=== PATIENT | female | born 1935 | race Caucasian/White ===

== ENCOUNTER 2020-11-16 16:12 | Inpatient (IN) ==
[2020-11-16] MEDS ORDERED: Ondansetron 4 MG/2 ML VIAL IVP ONE (16:46)
[2020-11-16] MEDS ORDERED: GI Cocktail 40 ML EACH PO ONE (16:47)
[2020-11-16] MEDS ORDERED: Isovue-370 500 ML BOTTLE IVP ONE (16:47)
[2020-11-16 17:19] LABS: Basophils % 0.2 %; Eosinophils % 0.3 %; Hematocrit 32.2 % (35.3-44.9); Hemoglobin 11.1 g/dL (11.5-15.4); Immature Granulocytes % 0.4 % (0-4); Lymphocytes # 1.2 K/mcL (0.6-4.6); Lymphocytes % 11.6 %; Mean Corpuscular HGB Conc 34.5 g/dL (31.6-35.5); Mean Corpuscular Hemoglobin 32.7 pg (28.0-33.3); Monocytes # 1.1 K/mcL (0.0-1.3); Monocytes % 10.1 %; Neutrophils # 8.1 K/mcL (1.6-8.9); Platelet Count 199 K/mcL (140-400); Red Blood Count 3.39 M/mcL (3.82-4.97); Red Cell Distribution Width 12.3 % (11.5-14.5); Segmented Neutrophils % 77.4 %; White Blood Count 10.5 K/mcL (4.3-11.1)
[2020-11-16 17:50] LABS: Alanine Aminotransferase 10 Units/L (7-52); Albumin 4.1 g/dL (3.5-5.7); Albumin/Globulin Ratio 1.5 (1.1-2.2); Alkaline Phosphatase 123 Units/L (34-104); Aspartate Amino Transferase 19 Units/L (13-39); BUN/Creatinine Ratio 15 (6-26); Bilirubin,Total 0.5 mg/dL (0.3-1.0); Blood Urea Nitrogen 12 mg/dL (8-23); Calcium 9.1 mg/dL (8.6-10.3); Carbon Dioxide 21 mEq/L (23-29); Chloride 85 mEq/L (98-107); Globulin 2.7 g/dL (2.4-3.5); Glucose 92 mg/dL (70-105); Osmolality,Calculated 243 (280-300); Sodium 117 mEq/L (136-145); Total Protein 6.8 g/dL (6.4-8.9); Troponin I < 0.03 ng/mL (< 0.04); eGFR For African Americans > 60 (> 60); eGFR For Non-African Americans > 60 (> 60)
[2020-11-16] MEDS ORDERED: 0.9 % Sodium Chloride 1,000 ML IVC ONE (18:45)
[2020-11-16] MEDS ORDERED: Metoclopramide 10 MG/2 ML VIAL IVP ONE (20:16)
[2020-11-16 21:07] LABS: BUN/Creatinine Ratio 14 (6-26); Blood Urea Nitrogen 12 mg/dL (8-23); Carbon Dioxide 19 mEq/L (23-29); Chloride 88 mEq/L (98-107); Glucose 105 mg/dL (70-105); Osmolality,Calculated 246 (280-300); Sodium 118 mEq/L (136-145); eGFR For African Americans > 60 (> 60); eGFR For Non-African Americans > 60 (> 60)
[2020-11-16] MEDS ORDERED: Naloxone 0.4 MG/ML INJ IVP PRN (21:41)
[2020-11-16] MEDS ORDERED: Ondansetron 4 MG/2 ML VIAL IVP PRN (21:41)
[2020-11-16] MEDS ORDERED: diazePAM 2 MG TABLET PO PRN (22:00)
[2020-11-16 22:39] LABS: BUN/Creatinine Ratio 14 (6-26); Blood Urea Nitrogen 11 mg/dL (8-23); Calcium 8.9 mg/dL (8.6-10.3); Carbon Dioxide 21 mEq/L (23-29); Chloride 88 mEq/L (98-107); Glucose 111 mg/dL (70-105); Osmolality,Calculated 248 (280-300); Potassium 4.2 mEq/L (3.5-5.1); Sodium 119 mEq/L (136-145); eGFR For African Americans > 60 (> 60); eGFR For Non-African Americans > 60 (> 60)
[2020-11-16] MEDS: Acetaminophen 325 MG TABLET PO PRN (22:45)
[2020-11-16] MEDS ORDERED: 0.9 % Sodium Chloride 1,000 ML IVC SCH (22:45)
[2020-11-16] MEDS: Celecoxib 200 MG CAPSULE PO SCH (22:46)
[2020-11-16] MEDS: QUEtiapine Fumarate 25 MG TABLET PO SCH (22:46)
[2020-11-16] MEDS: PARoxetine 10 MG TABLET PO SCH (22:46)
[2020-11-16 23:13] LABS: Bilirubin,Urine Negative (Negative); Blood,Urine Negative (Negative); Clarity,Urine Clear (Clear); Color,Urine Colorless (Yellow); Glucose,Urine (UA) Normal (Normal); Ketones,Urine Negative (Negative); Leukocyte Esterase,Urine Large (Negative); Nitrite,Urine Positive (Negative); Protein,Urine Negative (Neg-Trace); RBC,Urine 0-3 per hpf (0-3); Specific Gravity,Urine 1.017 (1.010-1.025); Urobilinogen,Urine Normal (Normal); WBC,Urine 50-100 per hpf (0-3)
[2020-11-17] MEDS: cefTRIAXone 1,000 MG in Water for inj. (sterile) 10 ML IVP SCH (01:45)
[2020-11-17 02:29] LABS: Basophils % 0.1 %; Eosinophils # 0.1 K/mcL (0.0-0.6); Eosinophils % 0.7 %; Hematocrit 29.4 % (35.3-44.9); Hemoglobin 10.2 g/dL (11.5-15.4); Immature Granulocytes % 0.5 % (0-4); Lymphocytes # 1.1 K/mcL (0.6-4.6); Lymphocytes % 12.2 %; Mean Corpuscular HGB Conc 34.7 g/dL (31.6-35.5); Mean Corpuscular Hemoglobin 33.6 pg (28.0-33.3); Mean Corpuscular Volume 96.7 fL (83.0-100.0); Monocytes # 0.8 K/mcL (0.0-1.3); Monocytes % 8.5 %; Neutrophils # 7.1 K/mcL (1.6-8.9); Platelet Count 173 K/mcL (140-400); Red Blood Count 3.04 M/mcL (3.82-4.97); Red Cell Distribution Width 12.7 % (11.5-14.5); White Blood Count 9.2 K/mcL (4.3-11.1)
[2020-11-17 02:44] LABS: BUN/Creatinine Ratio 14 (6-26); Blood Urea Nitrogen 11 mg/dL (8-23); Calcium 8.2 mg/dL (8.6-10.3); Carbon Dioxide 20 mEq/L (23-29); Chloride 93 mEq/L (98-107); Glucose 119 mg/dL (70-105); Osmolality,Calculated 249 (280-300); Potassium 4.3 mEq/L (3.5-5.1); Sodium 119 mEq/L (136-145); eGFR For African Americans > 60 (> 60); eGFR For Non-African Americans > 60 (> 60)
[2020-11-17 05:51] LABS: BUN/Creatinine Ratio 12 (6-26); Blood Urea Nitrogen 10 mg/dL (8-23); Calcium 8.6 mg/dL (8.6-10.3); Carbon Dioxide 23 mEq/L (23-29); Chloride 96 mEq/L (98-107); Glucose 103 mg/dL (70-105); Magnesium 2.3 mg/dL (1.6-2.6); Osmolality,Calculated 259 (280-300); Potassium 4.4 mEq/L (3.5-5.1); Sodium 125 mEq/L (136-145); eGFR For African Americans > 60 (> 60); eGFR For Non-African Americans > 60 (> 60)
[2020-11-17] MEDS: Celecoxib 200 MG CAPSULE PO SCH (08:38)
[2020-11-17] MEDS: PARoxetine 10 MG TABLET PO SCH (08:38)
[2020-11-17] MEDS ORDERED: D5% in Water 1,000 ML IVC SCH (12:45)
[2020-11-17] MEDS: D5% in Water 1,000 ML IVC SCH (17:33)
[2020-11-17] MEDS: QUEtiapine Fumarate 25 MG TABLET PO SCH (22:11)
[2020-11-18 01:32] LABS: Basophils % 0.6 %; Eosinophils # 0.2 K/mcL (0.0-0.6); Eosinophils % 3.3 %; Hematocrit 29.7 % (35.3-44.9); Hemoglobin 10.2 g/dL (11.5-15.4); Immature Granulocytes % 0.3 % (0-4); Lymphocytes # 1.1 K/mcL (0.6-4.6); Lymphocytes % 17.4 %; Mean Corpuscular HGB Conc 34.3 g/dL (31.6-35.5); Mean Corpuscular Hemoglobin 33.3 pg (28.0-33.3); Mean Corpuscular Volume 97.1 fL (83.0-100.0); Mean Platelet Volume 8.8 fL (9.4-12.4); Monocytes # 0.8 K/mcL (0.0-1.3); Monocytes % 11.4 %; Neutrophils # 4.4 K/mcL (1.6-8.9); Platelet Count 191 K/mcL (140-400); Red Blood Count 3.06 M/mcL (3.82-4.97); Red Cell Distribution Width 13.2 % (11.5-14.5); White Blood Count 6.6 K/mcL (4.3-11.1)
[2020-11-18] MEDS: cefTRIAXone 1,000 MG in Water for inj. (sterile) 10 ML IVP SCH (01:39)
[2020-11-18] MEDS: D5% in Water 1,000 ML IVC SCH (01:46)
[2020-11-18 01:49] LABS: BUN/Creatinine Ratio 17 (6-26); Blood Urea Nitrogen 11 mg/dL (8-23); Calcium 8.7 mg/dL (8.6-10.3); Carbon Dioxide 22 mEq/L (23-29); Chloride 97 mEq/L (98-107); Glucose 110 mg/dL (70-105); Osmolality,Calculated 262 (280-300); Potassium 4.2 mEq/L (3.5-5.1); Sodium 126 mEq/L (136-145); eGFR For African Americans > 60 (> 60); eGFR For Non-African Americans > 60 (> 60)
[2020-11-18] MEDS: Multivit/Ca/Min/Fe/FA 1 TAB TABLET PO SCH (09:57)
[2020-11-18] MEDS: Cholecalciferol (D-3) 1,000 UNIT (25MCG) TABLET PO SCH (09:57)
[2020-11-18] MEDS: PARoxetine 10 MG TABLET PO SCH (09:57)
[2020-11-18] MEDS: Folic Acid 1 MG TABLET PO SCH (09:57)
[2020-11-18] MEDS: 0.9 % Sodium Chloride 1,000 ML IVC SCH ×2 (11:42→21:30)
[2020-11-18 12:37] LABS: BUN/Creatinine Ratio 11 (6-26); Blood Urea Nitrogen 8 mg/dL (8-23); Calcium 9.3 mg/dL (8.6-10.3); Carbon Dioxide 24 mEq/L (23-29); Chloride 93 mEq/L (98-107); Glucose 130 mg/dL (70-105); Osmolality,Calculated 260 (280-300); Potassium 4.2 mEq/L (3.5-5.1); Sodium 125 mEq/L (136-145); eGFR For African Americans > 60 (> 60); eGFR For Non-African Americans > 60 (> 60)
[2020-11-18] MEDS: QUEtiapine Fumarate 25 MG TABLET PO SCH (21:30)
[2020-11-18 22:33] LABS: BUN/Creatinine Ratio 13 (6-26); Blood Urea Nitrogen 8 mg/dL (8-23); Calcium 8.7 mg/dL (8.6-10.3); Carbon Dioxide 25 mEq/L (23-29); Chloride 96 mEq/L (98-107); Glucose 100 mg/dL (70-105); Osmolality,Calculated 262 (280-300); Sodium 127 mEq/L (136-145); eGFR For African Americans > 60 (> 60); eGFR For Non-African Americans > 60 (> 60)
[2020-11-19] MEDS: cefTRIAXone 1,000 MG in Water for inj. (sterile) 10 ML IVP SCH (00:40)
[2020-11-19] MEDS: Acetaminophen 325 MG TABLET PO PRN (03:45)
[2020-11-19 07:31] LABS: BUN/Creatinine Ratio 11 (6-26); Blood Urea Nitrogen 7 mg/dL (8-23); Calcium 8.8 mg/dL (8.6-10.3); Carbon Dioxide 22 mEq/L (23-29); Chloride 102 mEq/L (98-107); Glucose 101 mg/dL (70-105); Osmolality,Calculated 268 (280-300); Potassium 4.3 mEq/L (3.5-5.1); Sodium 130 mEq/L (136-145); eGFR For African Americans > 60 (> 60); eGFR For Non-African Americans > 60 (> 60)
[2020-11-19] MEDS: Multivit/Ca/Min/Fe/FA 1 TAB TABLET PO SCH (08:27)
[2020-11-19] MEDS: Folic Acid 1 MG TABLET PO SCH (08:27)
[2020-11-19] MEDS: PARoxetine 10 MG TABLET PO SCH (08:28)
[2020-11-19] MEDS: Cholecalciferol (D-3) 1,000 UNIT (25MCG) TABLET PO SCH (08:28)
[2020-11-19 11:48] VITALS: BP 168/78
== END 2020-11-19 12:45 | disposition home or self-care (01) | DRG 641 ==
LOC: EMEROOARM 16:12 → 2NENU 16:12 → SUATTDRO 20:24 → 2NENU 21:33 → SUATTDRO 11-17 11:49
PROVIDERS: ADMIT Internal Medicine; ATTEND Internal Medicine

== ENCOUNTER 2021-07-27 07:43 | Observation (INO) ==
[2021-07-27] MEDS ORDERED: 0.9 % Sodium Chloride 1,000 ML IVC ONE (07:55)
[2021-07-27 08:52] LABS: Basophils % 0.2 %; Eosinophils # 0.1 K/mcL (0.0-0.6); Eosinophils % 1.2 %; Hematocrit 32.9 % (35.3-44.9); Hemoglobin 11.4 g/dL (11.5-15.4); Immature Granulocytes % 0.6 % (0-4); Lymphocytes # 0.9 K/mcL (0.6-4.6); Lymphocytes % 10.6 %; Mean Corpuscular HGB Conc 34.7 g/dL (31.6-35.5); Mean Corpuscular Hemoglobin 33.4 pg (28.0-33.3); Mean Corpuscular Volume 96.5 fL (83.0-100.0); Mean Platelet Volume 9.4 fL (9.4-12.4); Monocytes % 11.5 %; Neutrophils # 6.5 K/mcL (1.6-8.9); Platelet Count 252 K/mcL (140-400); Red Blood Count 3.41 M/mcL (3.82-4.97); Segmented Neutrophils % 75.9 %; White Blood Count 8.6 K/mcL (4.3-11.1)
[2021-07-27 08:59] LABS: BUN/Creatinine Ratio 12 (6-26); Blood Urea Nitrogen 9 mg/dL (8-23); Calcium 9.4 mg/dL (8.6-10.3); Carbon Dioxide 21 mEq/L (23-29); Chloride 86 mEq/L (98-107); Glucose 112 mg/dL (70-105); Osmolality,Calculated 245 (280-300); Potassium 4.2 mEq/L (3.5-5.1); Sodium 118 mEq/L (136-145); Troponin I < 0.03 ng/mL (< 0.04); eGFR For African Americans > 60 (> 60); eGFR For Non-African Americans > 60 (> 60)
[2021-07-27] MEDS ORDERED: Ondansetron ODT 4 MG TAB.RAPDIS SL PRN (09:48)
[2021-07-27] MEDS ORDERED: Naloxone 0.4 MG/ML INJ IVP PRN (09:48)
[2021-07-27] MEDS ORDERED: Melatonin 3 MG TABLET PO PRN (09:48)
[2021-07-27] MEDS ORDERED: PARoxetine 10 MG TABLET PO SCH (10:00)
[2021-07-27 12:01] LABS: Thyroid Stimulating Hormone 4.525 mcIU/mL (0.340-5.600)
[2021-07-27] MEDS ORDERED: D5% in Water 1,000 ML IVC SCH (15:00)
[2021-07-27] MEDS ORDERED: QUEtiapine Fumarate 100 MG TABLET PO SCH (21:00)
[2021-07-28 00:37] LABS: Basophils % 0.3 %; Eosinophils # 0.1 K/mcL (0.0-0.6); Eosinophils % 1.8 %; Hematocrit 29.8 % (35.3-44.9); Hemoglobin 10.3 g/dL (11.5-15.4); Immature Granulocytes % 0.5 % (0-4); Lymphocytes # 1.3 K/mcL (0.6-4.6); Lymphocytes % 17.3 %; Mean Corpuscular HGB Conc 34.6 g/dL (31.6-35.5); Mean Corpuscular Hemoglobin 33.7 pg (28.0-33.3); Mean Corpuscular Volume 97.4 fL (83.0-100.0); Mean Platelet Volume 9.1 fL (9.4-12.4); Monocytes # 0.9 K/mcL (0.0-1.3); Monocytes % 12.4 %; Neutrophils # 5.1 K/mcL (1.6-8.9); Platelet Count 214 K/mcL (140-400); Red Blood Count 3.06 M/mcL (3.82-4.97); Red Cell Distribution Width 13.5 % (11.5-14.5); Segmented Neutrophils % 67.7 %; White Blood Count 7.6 K/mcL (4.3-11.1)
[2021-07-28 00:57] LABS: BUN/Creatinine Ratio 10 (6-26); Blood Urea Nitrogen 7 mg/dL (8-23); Calcium 8.8 mg/dL (8.6-10.3); Carbon Dioxide 19 mEq/L (23-29); Chloride 100 mEq/L (98-107); Glucose 119 mg/dL (70-105); Osmolality,Calculated 255 (280-300); Potassium 3.5 mEq/L (3.5-5.1); Sodium 123 mEq/L (136-145); eGFR For African Americans > 60 (> 60); eGFR For Non-African Americans > 60 (> 60)
[2021-07-28 06:43] VITALS: BP 126/67; PULSE 89; TEMP 98.2; O2SAT 98
[2021-07-28] MEDS ORDERED: Cholecalciferol (D-3) 1,000 UNIT (25MCG) TABLET PO SCH (09:00)
== END 2021-07-28 10:00 | disposition home or self-care (01) ==
LOC: 2ANU 07:43 → EMEROOARM 07:43 → SUATTDRO 13:23 → 2ANU 14:20
PROVIDERS: ADMIT Internal Medicine; ATTEND Internal Medicine

== ENCOUNTER 2022-02-24 21:15 | Observation (INO) ==
[2022-02-24 23:06] LABS: Basophils % 0.4 %; Eosinophils # 0.1 K/mcL (0.0-0.6); Eosinophils % 1.2 %; Hematocrit 28.5 % (35.3-44.9); Hemoglobin 9.7 g/dL (11.5-15.4); Immature Granulocytes % 0.4 % (0-4); Lymphocytes % 19.1 %; Mean Corpuscular Hemoglobin 39.6 pg (28.0-33.3); Mean Corpuscular Volume 116.3 fL (83.0-100.0); Mean Platelet Volume 9.3 fL (9.4-12.4); Monocytes # 0.5 K/mcL (0.0-1.3); Monocytes % 9.8 %; Neutrophils # 3.6 K/mcL (1.6-8.9); Platelet Count 216 K/mcL (140-400); Red Blood Count 2.45 M/mcL (3.82-4.97); Red Cell Distribution Width 13.2 % (11.5-14.5); Segmented Neutrophils % 69.1 %; White Blood Count 5.2 K/mcL (4.3-11.1)
[2022-02-24 23:16] LABS: BUN/Creatinine Ratio 20 (6-26); Blood Urea Nitrogen 19 mg/dL (8-23); Calcium 8.8 mg/dL (8.6-10.3); Carbon Dioxide 25 mEq/L (23-29); Chloride 93 mEq/L (98-107); Glucose 123 mg/dL (70-105); Osmolality,Calculated 264 (280-300); Potassium 4.1 mEq/L (3.5-5.1); Sodium 125 mEq/L (136-145)
[2022-02-24 23:18] LABS: Troponin I < 0.03 ng/mL (< 0.04)
[2022-02-24] MEDS ORDERED: 0.9 % Sodium Chloride 500 ML IV ONE (23:40)
[2022-02-25 00:02] LABS: Macrocytosis Present (Not Present)
[2022-02-25 00:03] LABS: Platelet Estimate Normal (Normal)
[2022-02-25] MEDS ORDERED: Naloxone 0.4 MG/ML INJ IVP PRN (04:21)
[2022-02-25] MEDS ORDERED: Melatonin 3 MG TABLET PO PRN (04:21)
[2022-02-25] MEDS ORDERED: Ondansetron ODT 4 MG TAB.RAPDIS SL PRN (04:21)
[2022-02-25] MEDS ORDERED: 0.9 % Sodium Chloride 1,000 ML IVC SCH (05:00)
[2022-02-25 05:51] LABS: % Iron Saturation 15 % (15-50); Iron 47 mcg/dL (50-170); Transferrin 231 mg/dL (203-362)
[2022-02-25 06:22] LABS: Folate 9.8 ng/mL (3.0-16.0)
[2022-02-25 06:30] LABS: Bilirubin,Urine Negative (Negative); Blood,Urine Negative (Negative); Clarity,Urine Clear (Clear); Color,Urine Colorless (Yellow); Glucose,Urine (UA) Normal (Normal); Ketones,Urine Negative (Negative); Leukocyte Esterase,Urine Negative (Negative); Nitrite,Urine Negative (Negative); Protein,Urine Negative (Neg-Trace); Specific Gravity,Urine 1.008 (1.010-1.025); Urobilinogen,Urine Normal (Normal)
[2022-02-25 07:37] VITALS: BP 183/75; PULSE 78; TEMP 97; O2SAT 98
[2022-02-25 12:10] LABS: Calcium 8.8 mg/dL (8.6-10.3); Potassium 4.3 mEq/L (3.5-5.1)
== END 2022-02-25 15:45 ==
LOC: 3NENU 21:15 → EMEROOARM 21:15 → SUATTDRO 02-25 03:47 → 3NENU 02-25 04:30
PROVIDERS: ADMIT Internal Medicine; ATTEND Registered Nurse

== ENCOUNTER 2022-03-22 18:57 | Inpatient (IN) ==
[2022-03-22 19:47] LABS: Prothrombin Time 10.9 Seconds (9.4-12.1)
[2022-03-22 19:50] LABS: Activated Partial Thrombo Time 16.6 Seconds (26.0-36.0)
[2022-03-22 20:24] LABS: Alanine Aminotransferase 13 Units/L (7-52); Albumin 3.4 g/dL (3.5-5.7); Albumin/Globulin Ratio 1.2 (1.1-2.2); Alkaline Phosphatase 157 Units/L (34-104); Aspartate Amino Transferase 25 Units/L (13-39); BUN/Creatinine Ratio 20 (6-26); Bilirubin,Direct 0.1 mg/dL (0.0-0.2); Bilirubin,Indirect 0.4 mg/dL (0.0-1.0); Bilirubin,Total 0.5 mg/dL (0.3-1.0); Blood Urea Nitrogen 43 mg/dL (8-23); Calcium 9.2 mg/dL (8.6-10.3); Carbon Dioxide 21 mEq/L (23-29); Chloride 95 mEq/L (98-107); Ethanol < 10 mg/dL (Less than 10); Globulin 2.9 g/dL (2.4-3.5); Glucose 101 mg/dL (70-105); Osmolality,Calculated 273 (280-300); Potassium 5.1 mEq/L (3.5-5.1); Sodium 126 mEq/L (136-145); Total Protein 6.3 g/dL (6.4-8.9); Troponin I < 0.03 ng/mL (< 0.04)
[2022-03-22] MEDS ORDERED: 0.9 % Sodium Chloride 1,000 ML IVC ONE (20:49)
[2022-03-22 21:27] LABS: Bacteria,Urine Few per hpf (None-Few); Bilirubin,Urine Negative (Negative); Blood,Urine Negative (Negative); Budding Yeast,Urine Few per hpf (None Seen); Clarity,Urine Turbid (Clear); Color,Urine Yellow (Yellow); Glucose,Urine (UA) Normal (Normal); Granular Casts,Urine Few per lpf (None Seen); Ketones,Urine Negative (Negative); Leukocyte Esterase,Urine Large (Negative); Mucus,Urine Few per lpf (None-Few); Nitrite,Urine Negative (Negative); Protein,Urine 100 mg/dL (Neg-Trace); Specific Gravity,Urine 1.017 (1.010-1.025); Squamous Epithelial Cell,Urine Few per hpf (None-Few); Urobilinogen,Urine Normal (Normal); WBC,Urine TNTC per hpf (0-3)
[2022-03-22 21:34] LABS: Amphetamine Screen,Urine Negative ng/mL (Cutoff=1000); Barbiturate Screen,Urine Negative ng/mL (Cutoff=200); Benzodiazepines Screen,Urine Positive ng/mL (Cutoff=200); Cannabinoid Screen,Urine Negative ng/mL (Cutoff = 50); Cocaine Screen,Urine Negative ng/mL (Cutoff= 300); Opiate Screen,Urine Negative ng/mL (Cutoff=300); Phencyclidine Screen,Urine Negative ng/mL (Cutoff=25)
[2022-03-22 22:39] LABS: Basophils % 0.4 %; Eosinophils % 1.2 %; Hematocrit 27.4 % (35.3-44.9); Hemoglobin 9.3 g/dL (11.5-15.4); Immature Granulocytes % 15.7 % (0-4); Lymphocytes # 0.2 K/mcL (0.6-4.6); Mean Corpuscular HGB Conc 33.9 g/dL (31.6-35.5); Mean Corpuscular Hemoglobin 38.8 pg (28.0-33.3); Mean Corpuscular Volume 114.2 fL (83.0-100.0); Mean Platelet Volume 9.4 fL (9.4-12.4); Monocytes # 0.2 K/mcL (0.0-1.3); Neutrophils # 1.8 K/mcL (1.6-8.9); Platelet Count 126 K/mcL (140-400); Red Cell Distribution Width 12.4 % (11.5-14.5); Segmented Neutrophils % 70.7 %; White Blood Count 2.5 K/mcL (4.3-11.1)
[2022-03-22 23:04] LABS: Platelet Estimate Normal (Normal)
[2022-03-22] MEDS ORDERED: cefTRIAXone 1,000 MG in 0.9 % Sodium Chloride 10 ML IVP ONE (23:18)
[2022-03-22 23:26] LABS: Influenza A PCR Negative (Negative); Influenza B PCR Negative (Negative); Resp. Syncytial Virus PCR Negative (Negative)
[2022-03-22] MEDS ORDERED: *HR* HYDROcodone/Acet 5/325 mg TABLET PO PRN (23:36)
[2022-03-22] MEDS ORDERED: *HR* OxyCODONE Immed Rel 5 MG TABLET PO PRN (23:36)
[2022-03-22] MEDS ORDERED: Naloxone 0.4 MG/ML INJ IVP PRN (23:36)
[2022-03-22] MEDS ORDERED: Ondansetron ODT 4 MG TAB.RAPDIS SL PRN (23:36)
[2022-03-22] MEDS ORDERED: Ipratropium/Albuterol Neb 3 ML IH PRN (23:39)
[2022-03-22] MEDS ORDERED: 0.9 % Sodium Chloride 1,000 ML IVC SCH (23:45)
[2022-03-22 23:54] LABS: SARS-CoV-2 by PCR (In House) Positive (Negative)
[2022-03-23] MEDS ORDERED: cefTRIAXone 1,000 MG in 0.9 % Sodium Chloride 10 ML IVP ONE (04:00)
[2022-03-23 09:52] LABS: Hematocrit 25.4 % (35.3-44.9); Hemoglobin 8.7 g/dL (11.5-15.4); Mean Corpuscular HGB Conc 34.3 g/dL (31.6-35.5); Mean Corpuscular Hemoglobin 39.5 pg (28.0-33.3); Mean Corpuscular Volume 115.5 fL (83.0-100.0); Mean Platelet Volume 9.9 fL (9.4-12.4); Platelet Count 110 K/mcL (140-400); Red Cell Distribution Width 12.9 % (11.5-14.5); White Blood Count 2.7 K/mcL (4.3-11.1)
[2022-03-23 10:10] LABS: Calcium 8.6 mg/dL (8.6-10.3); Phosphorous 4.4 mg/dL (2.7-4.5); Potassium 4.4 mEq/L (3.5-5.1)
[2022-03-23] MEDS ORDERED: polyethylene glycoL 3350 17 GM POWD.PACK PO PRN (17:42)
[2022-03-23] MEDS ORDERED: tiZANidine 4 MG TABLET PO PRN (17:49)
[2022-03-23] MEDS ORDERED: Melatonin 3 MG TABLET PO SCH (19:00)
[2022-03-23] MEDS: QUEtiapine Fumarate 100 MG TABLET PO SCH (21:09)
[2022-03-23] MEDS: Acetaminophen 325 MG TABLET PO PRN (21:09)
[2022-03-24 04:12] LABS: Hematocrit 23.3 % (35.3-44.9); Hemoglobin 7.8 g/dL (11.5-15.4); Mean Corpuscular HGB Conc 33.5 g/dL (31.6-35.5); Mean Corpuscular Volume 113.7 fL (83.0-100.0); Platelet Count 119 K/mcL (140-400); Red Blood Count 2.05 M/mcL (3.82-4.97); Red Cell Distribution Width 12.8 % (11.5-14.5); White Blood Count 2.8 K/mcL (4.3-11.1)
[2022-03-24 04:37] LABS: BUN/Creatinine Ratio 24 (6-26); Blood Urea Nitrogen 36 mg/dL (8-23); C-Reactive Protein > 300 mg/L (Less than 10); Calcium 8.3 mg/dL (8.6-10.3); Carbon Dioxide 20 mEq/L (23-29); Chloride 102 mEq/L (98-107); Glucose 121 mg/dL (70-105); Osmolality,Calculated 282 (280-300); Potassium 3.7 mEq/L (3.5-5.1); Sodium 131 mEq/L (136-145)
[2022-03-24 05:46] LABS: Eosinophils # 0.1 K/mcL (0.0-0.6); Lymphocytes # 0.4 K/mcL (0.6-4.6); Monocytes # 0.5 K/mcL (0.0-1.3); Neutrophils # 1.9 K/mcL (1.6-8.9)
[2022-03-24 05:47] LABS: Platelet Estimate Slight Decrease (Normal)
[2022-03-24] MEDS ORDERED: *HR* Enoxaparin 30 MG/0.3 ML SYRINGE SQ SCH (06:00)
[2022-03-24] MEDS: 0.9 % Sodium Chloride 1,000 ML IVC SCH ×2 (06:01→06:02)
[2022-03-24] MEDS: cefTRIAXone 1,000 MG in 0.9 % Sodium Chloride Mini Bag 100 ML IVPB SCH (06:04)
[2022-03-24] MEDS: Lubiprostone 24 MCG Capsule PO SCH ×2 (10:00→15:26)
[2022-03-24] MEDS: diazePAM 2 MG TABLET PO PRN (10:00)
[2022-03-24] MEDS: Acetaminophen 325 MG TABLET PO PRN ×2 (13:26→21:45)
[2022-03-24] MEDS: QUEtiapine Fumarate 100 MG TABLET PO SCH (21:43)
[2022-03-24] MEDS: Melatonin 3 MG TABLET PO PRN (21:43)
[2022-03-25] MEDS: diazePAM 2 MG TABLET PO PRN (03:53)
[2022-03-25 05:57] LABS: Basophils % 0.2 %; Eosinophils % 0.6 %; Hematocrit 25.1 % (35.3-44.9); Hemoglobin 8.4 g/dL (11.5-15.4); Immature Granulocytes % 0.9 % (0-4); Lymphocytes # 0.2 K/mcL (0.6-4.6); Lymphocytes % 4.5 %; Mean Corpuscular HGB Conc 33.5 g/dL (31.6-35.5); Mean Corpuscular Volume 113.6 fL (83.0-100.0); Mean Platelet Volume 9.6 fL (9.4-12.4); Monocytes # 0.5 K/mcL (0.0-1.3); Monocytes % 8.9 %; Neutrophils # 4.5 K/mcL (1.6-8.9); Platelet Count 118 K/mcL (140-400); Red Blood Count 2.21 M/mcL (3.82-4.97); Red Cell Distribution Width 13.2 % (11.5-14.5); Segmented Neutrophils % 84.9 %
[2022-03-25 06:02] LABS: White Blood Count 5.3 K/mcL (4.3-11.1)
[2022-03-25 06:14] LABS: Calcium 8.5 mg/dL (8.6-10.3); Potassium 3.4 mEq/L (3.5-5.1)
[2022-03-25 06:15] LABS: Platelet Estimate Slight Decrease (Normal)
[2022-03-25] MEDS: cefTRIAXone 1,000 MG in 0.9 % Sodium Chloride Mini Bag 100 ML IVPB SCH (06:46)
[2022-03-25] MEDS ORDERED: Potassium Effervescent 25 MEQ TABLET.EFF PO ONE (07:50)
[2022-03-25] MEDS: Lubiprostone 24 MCG Capsule PO SCH ×2 (08:04→17:01)
[2022-03-25] MEDS: Acetaminophen 325 MG TABLET PO PRN (15:22)
[2022-03-25] MEDS: QUEtiapine Fumarate 100 MG TABLET PO SCH (20:36)
[2022-03-25] MEDS: Melatonin 3 MG TABLET PO PRN (20:36)
[2022-03-26] MEDS: diazePAM 2 MG TABLET PO PRN (01:02)
[2022-03-26] MEDS: cefTRIAXone 1,000 MG in 0.9 % Sodium Chloride Mini Bag 100 ML IVPB SCH (05:50)
[2022-03-26] MEDS: Lubiprostone 24 MCG Capsule PO SCH ×2 (09:27→17:33)
[2022-03-26 11:09] LABS: Calcium 8.6 mg/dL (8.6-10.3); Potassium 3.3 mEq/L (3.5-5.1)
[2022-03-26] MEDS: Acetaminophen 325 MG TABLET PO PRN (13:29)
[2022-03-26] MEDS: diazePAM 2 MG TABLET PO SCH (21:31)
[2022-03-26] MEDS: QUEtiapine Fumarate 100 MG TABLET PO SCH (21:33)
[2022-03-27] MEDS: cefTRIAXone 1,000 MG in 0.9 % Sodium Chloride Mini Bag 100 ML IVPB SCH (06:14)
[2022-03-27 07:34] LABS: Basophils % 0.2 %; Eosinophils % 0.6 %; Hematocrit 24.4 % (35.3-44.9); Hemoglobin 8.5 g/dL (11.5-15.4); Immature Granulocytes % 1.1 % (0-4); Lymphocytes # 0.5 K/mcL (0.6-4.6); Lymphocytes % 8.3 %; Mean Corpuscular HGB Conc 34.8 g/dL (31.6-35.5); Mean Corpuscular Hemoglobin 39.4 pg (28.0-33.3); Mean Platelet Volume 9.2 fL (9.4-12.4); Monocytes # 0.6 K/mcL (0.0-1.3); Monocytes % 8.9 %; Neutrophils # 5.2 K/mcL (1.6-8.9); Platelet Count 104 K/mcL (140-400); Red Blood Count 2.16 M/mcL (3.82-4.97); Segmented Neutrophils % 80.9 %; White Blood Count 6.4 K/mcL (4.3-11.1)
[2022-03-27 07:49] LABS: Calcium 8.2 mg/dL (8.6-10.3); Potassium 3.3 mEq/L (3.5-5.1)
[2022-03-27 08:05] LABS: Macrocytosis Present (Not Present); Platelet Estimate Slight Decrease (Normal)
[2022-03-27] MEDS: Lubiprostone 24 MCG Capsule PO SCH ×2 (08:08→21:10)
[2022-03-27] MEDS: *HR* Heparin 5,000 UNIT/ML VIAL SQ SCH ×3 (10:12→21:09)
[2022-03-27] MEDS ORDERED: Potassium Effervescent 25 MEQ TABLET.EFF PO ONE (12:45)
[2022-03-27] MEDS: diazePAM 2 MG TABLET PO SCH (21:09)
[2022-03-27] MEDS: QUEtiapine Fumarate 100 MG TABLET PO SCH (21:10)
[2022-03-27] MEDS: Potassium Chloride Elixir 20 MEQ/15 ML UDC PO SCH (21:15)
[2022-03-28 02:58] LABS: Basophils % 0.3 %; Eosinophils # 0.2 K/mcL (0.0-0.6); Eosinophils % 2.5 %; Hematocrit 24.3 % (35.3-44.9); Hemoglobin 8.3 g/dL (11.5-15.4); Immature Granulocytes % 0.9 % (0-4); Lymphocytes # 0.8 K/mcL (0.6-4.6); Mean Corpuscular HGB Conc 34.2 g/dL (31.6-35.5); Mean Corpuscular Hemoglobin 38.4 pg (28.0-33.3); Mean Corpuscular Volume 112.5 fL (83.0-100.0); Mean Platelet Volume 10.1 fL (9.4-12.4); Monocytes # 0.7 K/mcL (0.0-1.3); Monocytes % 9.8 %; Platelet Count 115 K/mcL (140-400); Red Blood Count 2.16 M/mcL (3.82-4.97); Red Cell Distribution Width 12.6 % (11.5-14.5); Segmented Neutrophils % 75.5 %; White Blood Count 6.8 K/mcL (4.3-11.1)
[2022-03-28 03:06] LABS: Neutrophils # 5.1 K/mcL (1.6-8.9)
[2022-03-28 03:19] LABS: Calcium 8.3 mg/dL (8.6-10.3)
[2022-03-28 03:29] LABS: Platelet Estimate Slight Decrease (Normal)
[2022-03-28] MEDS: cefTRIAXone 1,000 MG in 0.9 % Sodium Chloride Mini Bag 100 ML IVPB SCH (06:06)
[2022-03-28] MEDS: *HR* Heparin 5,000 UNIT/ML VIAL SQ SCH ×3 (06:06→20:38)
[2022-03-28] MEDS: Lubiprostone 24 MCG Capsule PO SCH ×2 (08:47→17:49)
[2022-03-28] MEDS: Potassium Chloride Elixir 20 MEQ/15 ML UDC PO SCH ×2 (08:56→20:40)
[2022-03-28] MEDS: diazePAM 2 MG TABLET PO SCH (20:39)
[2022-03-28] MEDS: QUEtiapine Fumarate 100 MG TABLET PO SCH (20:39)
[2022-03-29] MEDS: *HR* Heparin 5,000 UNIT/ML VIAL SQ SCH ×3 (05:39→20:57)
[2022-03-29] MEDS: Lubiprostone 24 MCG Capsule PO SCH ×2 (09:14→18:18)
[2022-03-29] MEDS: Potassium Chloride Elixir 20 MEQ/15 ML UDC PO SCH ×2 (09:16→20:57)
[2022-03-29] MEDS: QUEtiapine Fumarate 100 MG TABLET PO SCH (18:17)
[2022-03-29] MEDS: diazePAM 2 MG TABLET PO SCH (20:57)
[2022-03-30] MEDS: *HR* Heparin 5,000 UNIT/ML VIAL SQ SCH ×3 (04:55→22:07)
[2022-03-30] MEDS: Potassium Chloride Elixir 20 MEQ/15 ML UDC PO SCH ×2 (08:11→22:06)
[2022-03-30] MEDS: Lubiprostone 24 MCG Capsule PO SCH ×2 (08:13→22:07)
[2022-03-30] MEDS: Melatonin 3 MG TABLET PO PRN (22:06)
[2022-03-30] MEDS: diazePAM 2 MG TABLET PO SCH (22:06)
[2022-03-30] MEDS: QUEtiapine Fumarate 100 MG TABLET PO SCH (22:09)
[2022-03-31] MEDS: *HR* Heparin 5,000 UNIT/ML VIAL SQ SCH ×3 (05:28→21:27)
[2022-03-31] MEDS: Potassium Chloride Elixir 20 MEQ/15 ML UDC PO SCH ×2 (09:47→21:27)
[2022-03-31] MEDS: Lubiprostone 24 MCG Capsule PO SCH ×2 (09:47→17:10)
[2022-03-31] MEDS: Acetaminophen 325 MG TABLET PO PRN (16:04)
[2022-03-31] MEDS: QUEtiapine Fumarate 100 MG TABLET PO SCH (21:27)
[2022-03-31] MEDS: diazePAM 2 MG TABLET PO SCH (21:27)
[2022-04-01] MEDS: *HR* Heparin 5,000 UNIT/ML VIAL SQ SCH (06:09)
[2022-04-01] MEDS: Lubiprostone 24 MCG Capsule PO SCH (07:17)
[2022-04-01] MEDS: Acetaminophen 325 MG TABLET PO PRN (08:22)
[2022-04-01] MEDS: Potassium Chloride Elixir 20 MEQ/15 ML UDC PO SCH (08:22)
[2022-04-01 12:26] VITALS: BP 113/92; PULSE 89; TEMP 96.9; O2SAT 97
== END 2022-04-01 13:30 | DRG 871 ==
LOC: 4WAOSI 18:57 → EMEROOARM 18:57 → SUATTDRO 23:49 → 4WAOSI 03-23 01:30 → SUATTDRO 03-23 16:59 → 3NENU 03-23 22:02
PROVIDERS: ADMIT Internal Medicine; ATTEND Internal Medicine